=== PATIENT | female | born 1955 | race Caucasian/White ===

== ENCOUNTER 2018-02-09 13:17 | Emergency (ER) | payer BC, SELFPAY ==
[2018-02-09 13:19] VITALS: BP 146/74; PULSE 102; RESP 16; TEMP 36.6; O2SAT 96; BMI 27.4
--- NOTE | 2018-02-09 13:23 | RAD_ITS ---
STUDY: X-RAY - LEFT WRIST REASON FOR EXAM: Female, 63 years old. Fall. TECHNIQUE: 3 view(s) of the wrist were obtained. COMPARISON: None. FINDINGS: There is an acute fracture of the distal radius with dorsal angulation. There is acute nondisplaced fracture of the distal ulna. Normal radiocarpal articulation. Normal distal radioulnar articulation. Normal carpal bones. Normal carpal articulations. Normal carpometacarpal articulation of the thumb. Normal second through fifth carpometacarpal articulations. Normal visualized metacarpal bones. There is soft tissue swelling. RAD/Wrist min 3 Views IMPRESSION: Distal radius and ulna fractures. Electronically Signed: Gene Moreno MD at 14:38 EDT , Service support ,
[2018-02-09] MEDS: morphine 8 MG/ML Syringe IV (13:40)
[2018-02-09] MEDS: Ondansetron 4 MG/2 ML Vial IV (13:40)
[2018-02-09 14:48] VITALS: BP 125/64; BP 136/86; BP 137/77; PULSE 80; PULSE 93; RESP 16; RESP 18; RESP 19; O2SAT 100; O2SAT 96; O2SAT 99
--- NOTE | 2018-02-09 14:54 | RAD_ITS ---
STUDY: X-RAY - LEFT WRIST REASON FOR EXAM: Female, 63 years old. Post reduction images. TECHNIQUE: 3 view(s) of the wrist were obtained through casting material. COMPARISON: Earlier in the day. FINDINGS: There is generalized osteopenia. The comminuted fracture of the distal radius has more near anatomic alignment. The dorsal displacement has been reduced. Normal radiocarpal articulation. Normal distal radioulnar articulation. Normal carpal bones. Osteoarthrosis of the radiocarpal row is stable. There is stable arthrosis of the first carpometacarpal articulation. Normal second through fifth carpometacarpal articulations. Normal visualized metacarpal bones. The soft tissue structures are unremarkable. RAD/Wrist min 3 Views IMPRESSION: Post reduction images as described. Electronically Signed: Kody Lizama MD at 16:31 EDT , Service support ,
--- NOTE | 2018-02-09 14:58 | ED.VISSUMM ---
- ER Visit Summary Date of Service: 02/09/18 Chief Complaint: Fall with left wrist pain History of Present Illness: The patient is a 63 F past medical history of hypertension and high cholesterol. Patient was watching her daughter golf today and a college golf tournament she slipped and fell landing awkwardly on her left wrist complaining of pain and swelling. She was brought in by squad in an air splint. She denies other injuries. She did not hit her head. She was not knocked out. She is on no blood thinners. She is right-hand dominant. No prior history of surgery to the left upper extremity. Physical Examination: Older female no acute distress. Vital signs are stable. Afebrile. H EENT exam unremarkable atraumatic. Pupils round reactive light. No signs of trauma to the face or scalp. C-spine nontender. Trachea midline. Normal range of motion to her neck. Lungs good auscultation bilaterally. Chest wall nontender. Heart regular rhythm rate about 100 murmur. Abdomen soft nontender. Pelvic girdle intact. Right upper and both lower extremities are nontender neurovascular intact. With normal range of motion and no deformity. Left upper extremity she has pain on palpation, swelling and tenderness to the left wrist. Skin is intact. Radial pulses intact. Left hand is neurovascular intact with cap refill, touch sensation able to wiggle her fingers. Proximal forearm, elbow, upper arm and shoulder are nontender. No deformity. Back nontender. Neurologic exam she is awake alert without deficit. Test Results: X-ray of the left wrist 3 views left distal radius fracture with dorsal angulation and displacement. Also an ulnar styloid fracture is nondisplaced. Post reduction film the distal radius piece was in better position after the manual reduction. AP splints in place. I went over the films with the patient. Emergency Department Course and Treatment: Patient was consciously sedated using propofol. She received 60 mg IV. She was on a manager cardiac cath and pulse ox the entire time. Her blood pressure and pulse ox remained stable the entire time. Her pulse ox was in the high 90s the entire time. I was able to manually reduce the distal radius fracture. She was placed in a short arm AP splint. That was well-padded. Postreduction films are pending. On repeat exam at 1520 patient is doing well. She is awake alert. She was instructed not to drive today. Treatment Plan: Ice and elevate. Keep splint dry and clean. Call and follow-up with Dr. Devin Pettit of orthopedics. [place] for pain. Along with Motrin for pain and swelling. Disposition: Discharge Impression: Acute fall Acute left wrist distal radius and ulna fractures with displacement and angulation of the distal radius. Conscious sedation by ER physician using propofol Manual reduction of left wrist fracture by ER physician Short arm AP splint by ER physician using Ortho-Glass This note was generated with [employer] dictation software. It may contain incorrect words, spelling, and punctuation that were not noted in review of the chart prior to signing ED Disposition - Plan for ED Patient: Disposition: Home or Assisted Living Chief Complaint: Upper Extremity Injury Instructions: ED Fx Wrist General Prescriptions: Hydrocodone/Acetaminophen [[place] 7.5-325 Tablet] 1 ea PO Q4H PRN PRN #20 tab PRN Reason: Pain Referrals: Devin Pettit, [STAFF PHYSICIAN] - Additional Instructions: Keep splint dry and clean. Ice and elevate left wrist as much as possible next 3 days. [place] for more severe pain. Motrin for pain and inflammation. Call and follow-up with an orthopedic physician of your choice to have this reevaluated. You may need surgery versus a cast.
[2018-02-09] MEDS: morphine 8 MG/ML Syringe 6 MG IV (15:01)
--- NOTE | 2018-02-09 15:02 | ED.DCSUM_ITS ---
- ER Visit Summary Date of Service: 02/09/18 Chief Complaint: Fall with left wrist pain History of Present Illness: The patient is a 63 F past medical history of hypertension and high cholesterol. Patient was watching her daughter golf today and a college golf tournament she slipped and fell landing awkwardly on her left wrist complaining of pain and swelling. She was brought in by squad in an air splint. She denies other injuries. She did not hit her head. She was not knocked out. She is on no blood thinners. She is right-hand dominant. No prior history of surgery to the left upper extremity. Physical Examination: Older female no acute distress. Vital signs are stable. Afebrile. H EENT exam unremarkable atraumatic. Pupils round reactive light. No signs of trauma to the face or scalp. C-spine nontender. Trachea midline. Normal range of motion to her neck. Lungs good auscultation bilaterally. Chest wall nontender. Heart regular rhythm rate about 100 murmur. Abdomen soft nontender. Pelvic girdle intact. Right upper and both lower extremities are nontender neurovascular intact. With normal range of motion and no deformity. Left upper extremity she has pain on palpation, swelling and tenderness to the left wrist. Skin is intact. Radial pulses intact. Left hand is neurovascular intact with cap refill, touch sensation able to wiggle her fingers. Proximal forearm, elbow, upper arm and shoulder are nontender. No deformity. Back nontender. Neurologic exam she is awake alert without deficit. Test Results: X-ray of the left wrist 3 views left distal radius fracture with dorsal angulation and displacement. Also an ulnar styloid fracture is nondisplaced. Post reduction film the distal radius piece was in better position after the manual reduction. AP splints in place. I went over the films with the patient. Emergency Department Course and Treatment: Patient was consciously sedated using propofol. She received 60 mg IV. She was on a director of cardiac cath lab and pulse ox the entire time. Her blood pressure and pulse ox remained stable the entire time. Her pulse ox was in the high 90s the entire time. I was able to manually reduce the distal radius fracture. She was placed in a short arm AP splint. That was well-padded. Postreduction films are pending. On repeat exam at 1520 patient is doing well. She is awake alert. She was instructed not to drive today. Treatment Plan: Ice and elevate. Keep splint dry and clean. Call and follow-up with Dr. Devin Pettit of orthopedics. [place] for pain. Along with Motrin for pain and swelling. Disposition: Discharge Impression: Acute fall Acute left wrist distal radius and ulna fractures with displacement and angulation of the distal radius. Conscious sedation by ER physician using propofol Manual reduction of left wrist fracture by ER physician Short arm AP splint by ER physician using Ortho-Glass This note was generated with [employer] dictation software. It may contain incorrect words, spelling, and punctuation that were not noted in review of the chart prior to signing ED Disposition - Plan for ED Patient: Disposition: Home or Assisted Living Chief Complaint: Upper Extremity Injury Instructions: ED Fx Wrist General Prescriptions: Hydrocodone/Acetaminophen [[place] 7.5-325 Tablet] 1 ea PO Q4H PRN PRN #20 tab PRN Reason: Pain Referrals: Devin Pettit, [STAFF PHYSICIAN] - Additional Instructions: Keep splint dry and clean. Ice and elevate left wrist as much as possible next 3 days. [place] for more severe pain. Motrin for pain and inflammation. Call and follow-up with an orthopedic physician of your choice to have this reevaluated. You may need surgery versus a cast.
--- NOTE | 2018-02-09 15:05 | DCINST.ED_ITS ---
ED Disposition - Plan for ED Patient: Disposition: Home or Assisted Living Chief Complaint: Upper Extremity Injury Instructions: ED Fx Wrist General Prescriptions: Hydrocodone/Acetaminophen [[place] 7.5-325 Tablet] 1 ea PO Q4H PRN PRN #20 tab PRN Reason: Pain Referrals: Devin Pettit DO [STAFF PHYSICIAN] - Additional Instructions: Keep splint dry and clean. Ice and elevate left wrist as much as possible next 3 days. [place] for more severe pain. Motrin for pain and inflammation. Call and follow-up with an orthopedic physician of your choice to have this reevaluated. You may need surgery versus a cast.
[2018-02-09] MEDS: HYDROcodone Bitartrate/Apap 5/325 Tablet PO (15:42)
[2018-02-09 15:43] VITALS: BP 121/77; PULSE 90; RESP 16; O2SAT 95
== END 2018-02-09 15:44 | disposition home or self-care (01) ==
PROVIDERS: Emergency Provider Emergency Medicine
DX: S52.502A Unspecified fracture of the lower end of left radius, initial encounter for closed fracture (principal); S52.615A Nondisplaced fracture of left ulna styloid process, initial encounter for closed fracture; W01.0XXA Fall on same level from slipping, tripping and stumbling without subsequent striking against object, initial encounter; Y93.89 Activity, other specified; Y92.9 Unspecified place or not applicable; I10 Essential (primary) hypertension; E78.00 Pure hypercholesterolemia, unspecified; Z79.82 Long term (current) use of aspirin; Z79.899 Other long term (current) drug therapy; Z72.0 Tobacco use
CPT/HCPCS: 25605; 73110; 96374; 96375; 96376; 99152; 99153; 99284; J7030; A4216; J2405